=== PATIENT | male | born 1945 | race Caucasian/White ===

== ENCOUNTER → 2018-10-27 | Outpatient (CLI) | payer MEDICARE, BC ==
--- NOTE | 2018-10-27 09:54 | RAD ---
CHEST PA LATERAL History: TACHYCARDIA Comparison: August 20, 2016 Findings: 2 PA views and single lateral view of the chest are submitted. Pericardial cardiac silhouette is somewhat enlarged although stable, likely epicardial fat, left. There are again granulomas of the lung bases. There is no pleural fluid, pneumothorax, new lobar infiltrate. There is emphysema. Impression: 1. There is emphysema, no significant infiltrate identified. Electronically signed by: Ruben Gonzalez MD (10/27/2018 9:49 AM) [id number]
== END | disposition home or self-care (01) ==
LOC: RAD 09:27
PROVIDERS: ATTEND Internal Medicine Cardiovascular Disease
DX: I48.2 Chronic atrial fibrillation (principal); I42.0 Dilated cardiomyopathy; I45.10 Unspecified right bundle-branch block; J43.9 Emphysema, unspecified; J84.10 Pulmonary fibrosis, unspecified
CPT/HCPCS: 71046